=== PATIENT | female | born 1960 | race Caucasian/White ===

== ENCOUNTER 2023-02-04 07:01 | Emergency (ER) | payer BC, OTHER ==
[~2023-02-04] VITALS: Ht 154.9 cm; Wt 65.8 kg
[~2023-02-04 07:01] MED LIST: OMEP10CA2
[2023-02-04 07:05] VITALS: BP_SYST 136
--- NOTE | 2023-02-04 07:05 | NUR ---
Placed in room 05 . Placed on florist supplies salesperson, blood pressure machine and pulse oximeter. To gown for exam. Side rails up. Report given to ERIS PARRA.
--- NOTE | 2023-02-04 07:07 | NUR ---
PT BIB FROM HOME C/O R SIDED ABD PAIN STARTING LAST NIGHT AROUND 1900, SHARP PAIN WORSE WITH MOVEMENT, LAST BM YESTERDAY, STATES WAS NORMAL. PT REPORTS HISTORY OF APPENDECTOMY AND CHOLECYSTECTOMY. DENIES N/V/D. PT IS AMBULATORY, AAOX4, VSS
--- NOTE | 2023-02-04 07:13 | NUR ---
PT IN ROOM. DR GARCIA IN ROOM WITH PT
--- NOTE | 2023-02-04 07:32 | NUR ---
PT RECEIVED, CARE ASSUMED. PT PRESENTS SELF TO ER WITH C/O RIGHT FLANK PAIN, NAUSEA X1 DAY. PT IN ROOM TALKING TO MD.
--- NOTE | 2023-02-04 07:32 | NUR ---
Urine collected: Dark orange color, clear, sent to lab. Pt. post-menopause.
[2023-02-04 08:01] LABS: BILIRUBIN,URINE NEGATIVE (NEGATIVE); BLOOD, URINE NEGATIVE (NEGATIVE); CLARITY/URINE CLEAR (CLEAR); COLOR,URINE YELLOW (YELLOW); GLUCOSE,URINE NEGATIVE (NEGATIVE); KETONES,URINE NEGATIVE (NEGATIVE); LEUKOCYTE ESTERASE ,URINE NEGATIVE (NEGATIVE); NITRITE, URINE NEGATIVE (NEGATIVE); PH,URINE 8.5 (5.0-8.0); PROTEIN URINE TRACE (NEGATIVE); UROBILINOGEN,URINE 0.2 (0.2-1.0)
[2023-02-04 08:01] LABS: BASOPHILS % (AUTO) 0.6 % (0.0-2.0); EOSINOPHILS # (AUTO) 0.2 K/uL (0.0-0.4); EOSINOPHILS % (AUTO) 2.6 % (0.0-4.0); HEMATOCRIT 37.5 % (36-48); HEMOGLOBIN 12.5 g/dL (12.0-16.0); LYMPHOCYTES # (AUTO) 1.7 K/uL (1.0-5.5); LYMPHOCYTES % (AUTO) 24.4 % (20.5-51.5); MEAN CORPUSCULAR HEMOGLOBIN 29 pg (27-31); MEAN CORPUSCULAR HGB CONC 33 % (32-36); MEAN CORPUSCULAR VOLUME 88 fL (79.0-98.0); MONOCYTES # (AUTO) 0.6 K/uL (0.0-1.0); MONOCYTES % (AUTO) 7.9 % (1.7-9.3); NEUTROPHILS # (AUTO) 4.5 K/uL (1.8-7.7); NEUTROPHILS % (AUTO) 64.5 % (40.0-70.0); PLATELET COUNT (AUTO) 190 K/uL (130-430); RED BLOOD CELL COUNT(AUTO) 4.26 MIL/uL (4.2-6.2); RED CELL DISTRIBUTION WIDTH 14.2 % (9.0-15.0)
[2023-02-04 08:14] LABS: CALCIUM 8.9 mg/dL (8.4-11.0); CREATININE 0.84 mg/dL (0.55-1.30)
[2023-02-04 08:19] LABS: ALBUMIN 3.5 g/dL (3.4-4.8); TOTAL BILIRUBIN 0.4 mg/dL (0.0-1.0)
[2023-02-04] MEDS ORDERED: metroNIDAZOLE 500 mg/NS 100 ML IV ONE (09:45)
[2023-02-04] MEDS ORDERED: LEVO750T64 PO (11:06)
[2023-02-04] MEDS ORDERED: METR-154 PO (11:06)
--- NOTE | 2023-02-04 11:29 | NUR ---
Patient given written and verbal discharge instructions and verbalizes understanding. ER MD discussed with patient the results and treatment provided. Patient in stable condition. ID arm band removed. IV catheter removed intact and dressing applied, no active bleeding. Rx of given. Patient educated on pain management and to follow up with PMD. Pain Scale . Opportunity for questions provided and answered. Medication side effect fact sheet provided.
[2023-02-04 11:35] VITALS: BP_SYST 138
== END 2023-02-04 11:29 | disposition home or self-care (01) ==
LOC: SED 07:01
DX: K57.92 Diverticulitis of intestine, part unspecified, without perforation or abscess without bleeding (principal); R10.31 Right lower quadrant pain; R10.11 Right upper quadrant pain; K21.9 Gastro-esophageal reflux disease without esophagitis; Z79.899 Other long term (current) drug therapy
CPT/HCPCS: 99285; 74176; 96365; 80053; 85025; 87040; 87210; 36415; 76376; 83605; 81003; J1956; J3490